=== PATIENT | female | born 1950 | race Caucasian/White ===

== ENCOUNTER 2021-06-30 15:11 | Outpatient (CLI) | payer MEDICARE, BC, SELFPAY ==
--- NOTE | ~2021-06-30 | XR_ITS ---
EXAMINATION: XR hip LT min 2V DATE: 06/30/2021 16:07 INDICATION: Left hip pain. TECHNIQUE: 2 views of left hip were obtained. COMPARISON: None. FINDINGS: Bone alignment is normal. No fracture. Left hip joint space is normal. IMPRESSION: 1. Normal left hip. Reviewed, dictated and finalized at location A. LION MANAGER IMPRESSION: 1. Normal left hip.
--- NOTE | ~2021-06-30 | XR_ITS ---
XR lumbar spine min 4V 06/30/2021 16:07 Indication: Low back pain Procedure: 5 views lumbar spine Comparison: 03/09/2006 Findings: There is mild disc narrowing at all lumbar levels. There is advanced multilevel facet hyper trophy. No acute fracture, subluxation or dislocation. There is levoscoliosis centered at L4. There i s atherosclerosis of the aorta. No evidence for spondylolisthesis. There are gallstones. Impression: 1: Severe lumbar spondylosis with levoscoliosis. 2: Cholelithiasis. Reviewed, dictated and finalized at location A. O COMPUTER SPECIALIST Impression: 1: Severe lumbar spondylosis with levoscoliosis. 2: Cholelithiasis.
== END 2021-06-30 15:12 | disposition home or self-care (01) ==
LOC: ANHIMG 15:18
PROVIDERS: PCP Family Medicine; Visit Provider Family Medicine
DX: M54.50 Low back pain, unspecified (principal); M25.559 Pain in unspecified hip; M47.816 Spondylosis without myelopathy or radiculopathy, lumbar region; K80.20 Calculus of gallbladder without cholecystitis without obstruction
CPT/HCPCS: 72110; 73502

== ENCOUNTER 2023-10-16 14:31 | Outpatient (RCR) | payer MEDICARE, BC, SELFPAY ==
[2023-10-16 15:30] VITALS: BMI 40.1
[2023-10-16 15:33] VITALS: BMI 40.1
== END 2024-01-01 11:33 | disposition home or self-care (01) ==
LOC: ANHDMC 14:31
PROVIDERS: PCP Family Medicine; Visit Provider Family Medicine
DX: N18.30 Chronic kidney disease, stage 3 unspecified (principal); E11.9 Type 2 diabetes mellitus without complications; Z68.41 Body mass index [BMI] 40.0-44.9, adult; Z71.3 Dietary counseling and surveillance
CPT/HCPCS: 97802